=== PATIENT | female | born 1960 | race Two or more races ===

== ENCOUNTER 2023-12-11 18:28 | Emergency (ER) | payer OTHER ==
[~2023-12-11] VITALS: Ht 165.1 cm; Wt 88.5 kg
[~2023-12-11 18:28] MED LIST: ALTACE1.25 M1 PO; GLIMEPIRIDE4 MG PO; METFORMIN HCL500 MG PO; NOVOLOG100 U/ML SQ
[2023-12-11] MEDS ORDERED: HUMALOG MI100 UNIT/2 SQ (18:38)
[2023-12-11] MEDS ORDERED: AVAPRO300 MG PO (18:39)
[2023-12-11] MEDS ORDERED: TOUJEO MAX300 UNIT/1 SQ (18:39)
[2023-12-11] MEDS ORDERED: INSULIN REGULAR, HUMAN 300 UNITS/3 ML UNITS SUBCUTANEO ONE (19:30)
[2023-12-11] MEDS ORDERED: KETOROLAC TROMETHAMINE 60 MG VIAL IM ONE (21:30)
[2023-12-11] MEDS ORDERED: CLONIDINE HCL 0.1 MG TABLET PO ONE (21:30)
== END 2023-12-11 22:47 ==
LOC: ER 18:28
DX: S09.8XXA Other specified injuries of head, initial encounter (principal); X58.XXXA Exposure to other specified factors, initial encounter; Y93.89 Activity, other specified; Y92.89 Other specified places as the place of occurrence of the external cause; Y99.8 Other external cause status; I10 Essential (primary) hypertension; E11.9 Type 2 diabetes mellitus without complications; Z79.4 Long term (current) use of insulin